=== PATIENT | male | born 1980 | race Caucasian/White ===

== ENCOUNTER 2017-09-30 09:57 | Outpatient (CLI) | payer BC ==
[2017-09-30 10:13] LABS: BASOPHILS % 0.6 (0.0-1.5); EOSINOPHILS % 2.9 % (0.0-6.8); MEAN CORPUSCULAR VOLUME 87.1 fl (80.0-100.0); MONOCYTES % 4.4 % (0.0-11.0); NEUTROPHILS # 9.7 # k/uL (1.4-7.7)
[2017-09-30 10:32] LABS: eGFR (African) > 60; eGFR (Non-African) > 60
== END 2017-09-30 10:00 ==
LOC: RT 09:57
PROVIDERS: ATTEND Physician Assistant
DX: R00.2 Palpitations (principal)
CPT/HCPCS: 36415; 80053; 84443; 85025

== ENCOUNTER 2017-10-20 13:22 | Outpatient (CLI) | payer BC | END 2017-10-20 13:23 | LOC: CARD 13:22 | PROVIDERS: ATTEND Internal Medicine Cardiovascular Disease | DX: R00.2 Palpitations (principal); R03.0 Elevated blood-pressure reading, without diagnosis of hypertension; Z72.0 Tobacco use | CPT/HCPCS: 99213 ==